=== PATIENT | male | born 1960 | race Caucasian/White ===

== ENCOUNTER 2019-03-29 10:02 | Inpatient (IN) ==
[2019-03-29] MEDS ORDERED: NS 1,000 ML IV ONE ×2 (10:26→13:26)
[2019-03-29 10:54] LABS: BASO# 0.02 X1000 (0.0-0.2); BASO% 0.2 % (0.0-0.8); EOS% 0.8 % (0.0-10.0); HEMATOCRIT 45.3 % (42.0-52.0); HEMOGLOBIN 15.7 g/dL (14.0-18.0); IMM GRAN# 0.03 X1000 (0.0-0.04); IMM GRAN% 0.3 % (0.0-0.5); LYMPH# 1.46 X1000 (1.2-3.4); LYMPH% 12.4 % (20.5-51.1); MCH 30.7 PG (27-31); MCHC 34.7 g/dL (33-37); MCV 88.6 FL (81-99); MONO# 1.39 X1000 (0.11-0.59); MONO% 11.8 % (1.7-9.3); MPV 10.3 FL (7.4-10.4); NEUT# 8.82 X1000 (1.4-6.5); NEUT% 74.5 % (42.2-75.2); PLT 137 X1000 (130-400); RBC 5.11 XMIL (4.7-6.1); WBC 11.82 X1000 (4.8-10.8)
[2019-03-29 11:02] LABS: AGAP 11; ALBUMIN 4.1 g/dL (3.5-5.0); ALKALINE PHOSPHATASE 70 U/L (32-122); BUN 15 mg/dL (8-22); CALCIUM 9.5 mg/dL (8.8-10.2); CHLORIDE 103 mmol/L (98-107); COSMO 284; CREATININE 1.1 mg/dL (0.7-1.2); ESTIMATED GFR > 60; GLUCOSE 94 mg/dL (70-104); GOT 18 U/L (10-34); GPT 22 U/L (10-44); LIPASE 20 U/L (13-60); POTASSIUM 3.9 mmol/L (3.5-5.1); SODIUM 142 mmol/L (136-145); TCO2 28 mmol/L (25-35); TOTAL PROTEIN 7.4 g/dL (6.3-8.3)
--- NOTE | 2019-03-29 12:09 | Diag Imaging Result Doc PS360 ---
EXAM: CT ABD/PELVIS W/IV CONT ONLY INDICATION: RLQ pain TECHNIQUE: This exam was performed using automated exposure control, adjustment of mA or kV according to patient size, and/or use of iterative reconstruction technique. COMPARISON: None. FINDINGS: There are calcified granulomata and minimal atelectasis at the lung bases. The gallbladder, liver, pancreas, and adrenal glands are essentially unremarkable. 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 There is a small simple cyst at the upper pole of the left kidney. There is no hydronephrosis. The urinary bladder is unremarkable. The prostate is enlarged measuring up to 6.8 x 3.4 cm axially. There is appendiceal wall thickening and the appendix measures up to 1.5 cm in diameter. There is extensive periappendiceal inflammatory stranding consistent with acute appendicitis. There is small volume lung loculated free fluid around the appendix. No well-defined abscess or free abdominal gas is identified to indicate perforation current study. There is moderate sigmoid colonic diverticulosis mainly involving the sigmoid colon without evidence of diverticulitis. There is no evidence of bowel obstruction. The remainder of the GI tract is essentially unremarkable. There is a small umbilical hernia seen incidentally that contains only fat. There is no evidence of acute osseous abnormality. IMPRESSION: 1.Acute appendicitis as described above with nothing that would suggest perforation on the current study. 2.Other incidental/nonacute findings detailed above. Electronically signed by Israel Shi 03/29/2019 12:06 PM
[2019-03-29] MEDS ORDERED: ZOSYN 3.375 GM in NS 50 ML IV ONE ×2 (12:30→17:00)
--- NOTE | 2019-03-29 12:34 | PROVIDER DOCUMENTATION ---
This chart was entered by Catia Sy Scribe, acting as scribe for Tim Toth MD. HPI-Abdominal Pain/GI Problem - General Chief Complaint: Abdominal Pain Stated Complaint: ABD PAIN Time Seen by Provider: 03/29/19 10:19 Source: patient Allergies/Adverse Reactions: Patient Allergies Allergy/AdvReac Type Severity Reaction Status Date / Time No Known Allergies Allergy Verified 03/29/19 10:25 Home Medications: Home Medication List Medication Instructions Recorded Confirmed Last Taken Type NK [No Home Medications] 03/29/19 03/29/19 Unknown History - History of Present Illness-ABD Nature of Presenting Problems: Patient is a 58 year old male who presents with RLQ abdominal pain. States chills and loss of appetite. Reports symptoms started 2 days ago. Denies nausea, vomiting, and diarrhea. Abdominal Pain Onset Location: reports: RLQ Quality of Pain: reports: aching Severity in ED: reports: mild Onset/Duration: reports: 2 days ago Timing: reports: still present Activities at Onset: reports: light activity Associated Symptoms: reports: fever/chills (chills), loss of appetite Bruising or Bleeding Gums?: No Similar Symptoms Previously?: Yes Recently seen or treated by another doctor?: No Review of Systems - Adult - REVIEW OF SYSTEMS - ADULT Constitutional: reports: see HPI, chills. denies: fever, night sweats Eyes: reports: no symptoms reported Ears, Nose, Mouth & Throat: reports: no symptoms reported Cardiovascular: reports: no symptoms reported Respiratory: reports: no symptoms reported Gastrointestinal: reports: see HPI, abdominal pain (RLQ), poor appetite. denies: diarrhea, nausea, rectal bleeding, vomiting Genitourinary: reports: no symptoms reported. denies: dysuria, hematuria, ur inary retention Musculoskeletal: reports: no symptoms reported Integumentary: reports: no symptoms reported Neurological: reports: no symptoms reported Psychiatric: reports: no symptoms reported Endocrine: reports: no symptoms reported Hematologic/Lymphatic: reports: no symptoms reported Allergic/Immunologic: reports: no symptoms reported All Other Systems: Reviewed and Negative Past History - Adult - PAST MEDICAL HISTORY-ADULT Review of Records: reports: Old Records Reviewed, Social history reviewed & non- contributory. Major Childhood Illnesses: reports: denies history Cardiovascular: reports: denies history Respiratory: reports: denies history Gastrointestinal: reports: denies history Obstetrical/Gynecological: reports: denies history Genitourinary: reports: denies history Musculoskeletal: reports: denies history Neurological: reports: denies history Endocrine/Immune: reports: denies history Other Conditions: reports: denies history - PRIOR SURGERIES/PROCEDURES Surgical/Procedure History: reports: joint replacement - IMMUNIZATION STATUS Childhood Immunizations: See Nurse Assessment Flu Vaccine: See Nurse Assessment - FAMILY HISTORY Family History: reviewed, not pertinent - SOCIAL HISTORY Smoking: cigarettes (former) Substance Use: denies Living Situation: family Physical Exam-General - PHYSICAL EXAM-ADULT Initial Vital Signs Reviewed: Yes - CONSTITUTIONAL General Appearance: alert, no apparent distress. negative: lethargic - HEAD, EARS, NOSE, MOUTH & THROAT HENMT: normocephalic/atraumatic, moist mucous membranes. negative: angioedema - GASTROINTESTINAL (ABDOMEN) Abdominal Exam: normal bowel sounds, non tender, soft. negative: guarding, r igid - MUSCULOSKELETAL Extremity: normal inspection. negative: deformity, erythema - SKIN Integumentary: normal color, normal turgor, warm/dry. negative: cyanosis, jaundice, rash - NEUROLOGIC Neurologic: grossly normal. negative: aphasia, facial droop, sensory deficit - PSYCHIATRIC Psych/Mental Status: normal mood/affect, oriented x 3. negative: anxious, paranoid Progress - PLAN OF CARE/RESULTS Progress/Plan/Lab Results: Vital Signs - 8 hr 03/29/19 10:10 Temperature 97.5 F L Pulse Rate 89 Respiratory Rate 16 Blood Pressure 143/79 O2 Sat by Pulse Oximetry 96 CT shows acute appy, spoke with Dr. Baez and will transfer to , he will do the surgery this afternoon Result Diagrams: 03/29/19 10:25 03/29/19 10:25 - CT/MRI 1 CT Study: Abdomen, Pelvis Impression: See EMR Report ( EXAM: CT ABD/PELVIS W/IV CONT ONLY INDICATION: RLQ pain TECHNIQUE: This exam was performed using automated exposure control, adjustment of mA or kV according to patient size, and/or use of iterative reconstruction technique. COMPARISON: None. FINDINGS: There are calcified granulomata and minimal atelectasis at the lung bases. The gallbladder, liver, pancreas, and adrenal glands are essentially unremarkable. 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 There is a small simple cyst at the upper pole of the left kidney. There is no hydronephrosis. The urinary bladder is unremarkable. The prostate is enlarged measuring up to 6.8 x 3.4 cm axially. There is appendiceal wall thickening and the appendix measures up to 1.5 cm in diameter. There is extensive periappendiceal inflammatory stranding consistent with acute appendicitis. There is small volume lung loculated free fluid around the appendix. No well-defined abscess or free abdominal gas is identified to indicate perforation current study. There is moderate sigmoid colonic diverticulosis mainly involving the sigmoid colon without evidence of diverticulitis. There is no evidence of bowel obstruction. The remainder of the GI tract is essentially unremarkable. There is a small umbi lical hernia seen incidentally that contains only fat. There is no evidence of acute osseous abnormality. IMPRESSION: 1.Acute appendicitis as described above with nothing that would suggest perforation on the current study. 2.Other incidental/nonacute findings detailed above. Electronically signed by Israel Shi 03/29/2019 12:06 PM 03/29/19 1206 Interpreting Physician: Israel Shi MD Dictated Date/Time: 03/29/19 1158 cc: Tim Toth MD; None,PCP) Departure - Departure Date of Disposition Decision: 03/29/19 Time of Disposition Decision: 12:32 DIAGNOSIS: Acute appendicitis Qualifiers: Acute appendicitis type: with generalized peritonitis Appendicitis gangrene presence: without gangrene Appendicitis perforation presence: unspecified whether perforation present Appendicitis abscess presence: without abscess Qualified Code(s): K35.20 - Acute appendicitis with generalized peritonitis, without abscess Disposition: ADMITTED INPATIENT 09 Certified Medical Emergency: Emergent Condition: Stable Referrals and Follow-Ups: None,PCP [Primary Care Provider] - - Critical Care Note This patient required my direct & personal management of CC.: No Attestation - Physician/ KIM Attestation Patient care was provided by Advanced Practice Provider:: No The physician spent face to face time with patient:: Yes Advanced Practice Provider documentation review:: Supervising physician onsite and consulted in the evaluation and care of this patient. The physician did have a face to face encounter with the patient. This chart was documented by the indicated scribe, (Catia Sy Scribe) and accurately reflects the services I performed and decisions made by me, Tim Toth MD, as attested by the provider's signature.
[2019-03-29] MEDS ORDERED: MORPHINE IV PRN (13:26)
[2019-03-29] MEDS ORDERED: ZOFRAN IV PRN (13:26)
[2019-03-29] MEDS ORDERED: TYLENOL PO PRN (13:26)
[2019-03-29] MEDS ORDERED: DIPRIVAN 1% ONE (15:33)
[2019-03-29] MEDS ORDERED: SODIUM CHLORIDE 0.9% 10 ML ONE (15:35)
[2019-03-29] MEDS ORDERED: XYLOCAINE-MPF 2% ONE (15:35)
[2019-03-29] MEDS ORDERED: QUELICIN (DOSE) ONE (15:35)
[2019-03-29] MEDS ORDERED: NORCURON ONE (15:35)
[2019-03-29] MEDS ORDERED: FENTANYL ONE (15:37)
[2019-03-29] MEDS ORDERED: ZOSYN 3.375 GM in NS 50 ML IV SCH (15:45)
[2019-03-29] MEDS ORDERED: SENSORCAINE 0.25%/EPI 1:200,000 ONE (15:59)
[2019-03-29] MEDS ORDERED: LR 1,000 ML ONE (15:59)
[2019-03-29] MEDS ORDERED: DECADRON ONE (16:57)
[2019-03-29] MEDS ORDERED: ZOFRAN ONE (16:57)
[2019-03-29] MEDS ORDERED: TORADOL ONE (16:57)
--- NOTE | 2019-03-29 17:17 | HISTORY AND PHYSICAL ---
ADMITTING DIAGNOSIS: Appendicitis. HISTORY OF PRESENT ILLNESS: A 58-year-old gentleman presenting with right lower quadrant abdominal pain to the emergency department described as starting 2 days prior to presentation. He had associated loss of appetite and states chills. He had a CT scan done that showed appendicitis. He has never had pain like this before. PAST MEDICAL HISTORY: None reported. PAST SURGICAL HISTORY: Right knee surgery. HOME MEDICATIONS: None. ALLERGIES: None. SOCIAL HISTORY: Former cigarette smoker. Denies alcohol or substance. FAMILY HISTORY: Reviewed with patient, noncontributory. REVIEW OF SYSTEMS: A full 14 systems reviewed and negative as specified in HPI. PHYSICAL EXAMINATION: VITAL SIGNS: Patient is currently afebrile. His vital signs is vital signs stable. GENERAL: No acute distress. HEENT: Normocephalic, atraumatic. Pupils equal, round, reactive to light. Mucous membranes moist. Oropharynx benign. NECK: Supple, trachea midline. CARDIOVASCULAR: Regular rate and rhythm. LUNGS: Grossly clear. ABDOMEN: Soft. Tender to palpation in the right lower quadrant. Positive Bishop sign. EXTREMITIES: Moves all extremities. NEUROLOGIC: Grossly intact. SKIN: No signs of jaundice. VASCULAR: All extremities perfused. LABORATORY: White blood cell count slightly elevated at 11. Remainder of labs reviewed. Bilirubin is slightly elevated at 1.6. CT scan independently reviewed and radiology report reviewed. He does have appendicitis and a small umbilical hernia. ASSESSMENT AND PLAN: A 58-year-old gentleman with appendicitis. 1. Appendicitis. At this time we will put him on antibiotics. Plan for surgical intervention. Discussed with him the risks, benefits, and alternatives, risks including, but not limited to bleeding, infection, risk of anesthesia, risk of staple leak, risk of injuring other organs discussed. All questions answered. We will plan on procedure today. cc: Sherman Suarez MD
[2019-03-29] MEDS ORDERED: OFIRMEV 1000 MG/ISOTONIC SOLN 1,000 MG/100 ML BOTTLE ONE (17:32)
[2019-03-29] MEDS ORDERED: NEOSTIGMINE ONE (17:46)
[2019-03-29] MEDS ORDERED: ROBINUL ONE (17:46)
[2019-03-29] MEDS ORDERED: MORPHINE ONE (18:15)
--- NOTE | 2019-03-29 18:19 | OPERATIVE NOTE ---
PROCEDURE DATE: 03/29/2019 PREOPERATIVE DIAGNOSIS: Appendicitis. POSTOPERATIVE DIAGNOSIS: Suppurative appendicitis. PROCEDURE: Laparoscopic appendectomy. SURGEON: Sherman Suarez MD. CONCRETE TILE MACHINE OPERATOR: None. ANESTHESIA: General endotracheal. OPERATIVE FINDINGS: Friable base of the appendix with suppurative formation around it with some small-bowel irritation. COMPLICATIONS: None at the time of this dictation. ESTIMATED BLOOD LOSS: 20 mL. SPECIMEN REMOVED: Appendix. DRAINS: A 19-Chinese. BRIEF HISTORY: A 58-year-old gentleman presenting with 2-day history of abdominal pain. He was found to have appendicitis. It was felt that he would benefit from appendectomy. The risks, benefits, and alternatives were discussed. Risks including, but not limited to, bleeding, infection, risk of anesthesia, risk of injury to other organs, risk of breakdown of staple line discussed. All questions answered. DESCRIPTION OF PROCEDURE: After informed consent was obtained, patient was brought to the operative theatre, transferred to operative table, placed in supine position. General endotracheal anesthesia was then performed without complication. A formal time-out was then performed confirming patient, date, and procedure. All were in agreement. At that time, attention was given to the abdomen. The patient had a pre-existing umbilical hernia which we used to facilitate entry into the abdomen. We elevated the periumbilical skin and made an incision through it. We were able to place a 12 mm trocar through the fascial defect, connected insufflation, pneumoperitoneum was achieved. Under direct visualization, we placed 2 more trocars, both 5 mm, 1 in the right upper quadrant, 1 in the left lower quadrant. Using these, the appendix was identified. It was inflamed. There was a suppurative reaction occurring around it. Some of the small bowel around it was inflamed and some of the cecum looked mildly inflamed. We were able to elevate the appendix to visualize it better, but the mesentery of the appendix tore. We had to use a LigaSure to seal off the arteries. Once we elevated enough, we took a staple across the base of the appendix. The base was very friable, but it was felt as though we were at the best position. It was a very short cecum in relation to where the terminal ileum came into the cecum. I did not think I had anymore room to do a cecectomy without injuring the terminal ileum and requiring further surgery. So, I elected to leave it as it was. Again, I did not see anything that looked obvious for a lumen or breakdown of the staple line, but it appeared to be very friable tissue. We irrigated out the abdomen until the suction fluid was clear. Given the inflammation of his small bowel, the inflammation of the cecum, and how inflamed his appendix was, I elected to leave a drain from the left lower quadrant incision. I tunneled in and placed it down by the staple line. We secured it in place in a standard fashion. We removed all trocars, disconnected insufflation. The pneumoperitoneum was released. We then closed the umbilical incision with a [id number] stitch. We had a pressure dressing placed and then closed the skin with Biosyn. The patient tolerated the procedure well. We will watch him in the hospital to monitor any signs of breakdown of the stump. cc: Sherman Suarez MD
[2019-03-29] MEDS: ZOSYN 3.375 GM in NS 50 ML IV SCH (21:21)
[2019-03-29] MEDS: PERIDEX MT SCH (21:21)
[2019-03-30] MEDS: ZOSYN 3.375 GM in NS 50 ML IV SCH ×3 (04:43→11:09)
--- NOTE | 2019-03-30 06:09 | GENERAL SURGERY PROGRESS NOTE ---
DATE: 03/30/2019 SUBJECTIVE: The patient seems to be doing okay. OBJECTIVE: Vital Signs: The patient is currently afebrile. Vital signs stable. General: No acute distress. Cardiovascular: Regular rate and rhythm. Lungs: Grossly clear. Abdomen: Soft, appropriately tender. ELA drain in place with serosanguineous output. ASSESSMENT AND PLAN: A 58-year-old gentleman status postoperative day #1 from laparoscopic appendectomy for suppurative appendicitis. Postoperative state: At this time, we will keep him on his IV antibiotics, but we will advance him to a regular diet. If he seems to do okay today, we will consider discharge later today, if not, maybe tomorrow. We will keep the Rhys-Iniugez drain in place. He is at high risk for breakdown of his staple line. I discussed this with the patient and the patient's yesterday. We will continue to monitor. cc: Sherman Suarez MD
[2019-03-30] MEDS: PERIDEX MT SCH (08:32)
[2019-03-30] MEDS: NORCO-5 PO PRN ×2 (08:32→15:59)
[2019-03-30 11:31] VITALS: BP 106/57
== END 2019-03-30 16:08 | disposition home or self-care (01) | DRG 343 ==
LOC: P.ED 10:02 → 4N 10:03
PROVIDERS: ADMIT Surgery; ATTEND Surgery